=== PATIENT | female | born 1955 | race African-American/Black ===

== ENCOUNTER 2019-11-10 15:45 | Outpatient (CLI) | payer BC, SELFPAY ==
--- NOTE | ~2019-11-10 | CT_ITS ---
EXAMINATION: CT abdomen pelvis wo con DATE: 11/10/2019 16:08 INDICATION: Diverticulitis left lower quadrant pain. TECHNIQUE: Computed tomography (CT) of the abdomen and pelvis was performed without intravenous contr ast. The dose-length product was 316.53 mGy-cm. Automated exposure control and iterative reconstructi on technique were employed. COMPARISON: No prior studies for comparison. FINDINGS: Lung bases are unremarkable. Heart size is normal. No significant pleural or pericardial ef fusion. There is a hypodense 1.4 cm mass of the left hepatic lobe, likely a cyst. The spleen, pancrea s, adrenal glands and kidneys are unremarkable. Gallbladder is present. No bowel obstruction. Status post appendectomy. Colonic diverticula without evidence for diverticulitis. No free air or free fluid . Mild atherosclerosis. No evidence for lymphadenopathy. No abnormal pelvic masses or fluid collectio ns. No free air or free fluid. Moderate lumbar spondylosis with grade 1 spondylolisthesis at L4-5. IMPRESSION: 1. No acute abnormality. No findings to account for patient's symptoms. Reviewed, dictated and finalized at location A. [facility]
== END 2019-11-10 15:46 | disposition home or self-care (01) ==
PROVIDERS: PCP Family Medicine; Visit Provider Family Medicine
DX: K57.92 Diverticulitis of intestine, part unspecified, without perforation or abscess without bleeding (principal)
CPT/HCPCS: 74176